=== PATIENT | male | born 1970 | race Caucasian/White ===

== ENCOUNTER 2019-12-24 20:21 | Inpatient (IN) | payer BC, OTHER ==
[~2019-12-24] VITALS: Ht 190.5 cm; Wt 101.6 kg
--- NOTE | 2019-12-24 20:30 | NUR ---
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 PER PT HE HAD A SZ WITH HEAD INJURY EARLIER, SCALP TINA NOTED.
[2019-12-24] MEDS ORDERED: LEVETIRACETAM (500MG) 1,000 MG in IV NS 0.9% 100 ML IV ONE (21:00)
[2019-12-24] MEDS ORDERED: IV NS 0.9% 1,000 ML BAG IV ONE (21:00)
[2019-12-24 21:22] LABS: BASOPHILS # (AUTO) 0.1 /CMM (0.0-0.2); EOSINOPHILS % (AUTO) 0.4 % (0.0-6.0); HEMATOCRIT 35 % (39-51); HEMOGLOBIN 12.1 g/dL (13.5-17.5); LYMPHOCYTES # (AUTO) 1.1 /CMM (0.8-4.8); MEAN CORPUSCULAR HGB CONC 34 g/dl (31.0-36.0); MEAN CORPUSCULAR VOLUME 103 fL (80-96); MONOCYTES # (AUTO) 0.6 /CMM (0.1-1.30); MONOCYTES % (AUTO) 5.7 % (2.0-12.0); NEUTROPHILS # (AUTO) 8.7 /CMM (1.8-8.9); NEUTROPHILS % (AUTO) 82.9 % (43.0-81.0); PLATELET COUNT (AUTO) 221 /CMM (150-450); RED BLOOD CELL COUNT(AUTO) 3.42 MIL/uL (4.5-6.0); WHITE BLOOD COUNT (AUTO) 10.5 K/uL (4.3-11.0)
[2019-12-24] MEDS ORDERED: KETOROLAC TROMETHAMINE INJ 30 MG/ML VIAL ONE (21:26)
[2019-12-24] MEDS ORDERED: KETOROLAC TROMETHAMINE INJ 30 MG/ML VIAL IV ONE (21:30)
--- NOTE | 2019-12-24 21:30 | NUR ---
PT W/ C/O LOWER BACK PAIN . CRISTOBAL CARABALLO MADE AWARE W. A NEW ORDER FOR TORADOL. NOTED AND CARRIED OUT
--- NOTE | 2019-12-24 21:39 | NUR ---
CRISTOBAL NAIDU SPEAKING WITH NEURO DR. TRUJILLO
[2019-12-24 22:24] LABS: CALCIUM, SERUM 9.1 mg/dL (8.5-10.1); CREATININE 1.2 mg/dL (0.6-1.3); POTASSIUM 4.1 mmol/L (3.5-5.1)
--- NOTE | 2019-12-24 22:46 | NUR ---
CALLED NURSING SUP FOR BED
--- NOTE | 2019-12-24 22:51 | NUR ---
DR. BEAL AT BEDSIDE FOR EVALUATION
--- NOTE | 2019-12-24 22:52 | NUR ---
DR BEAL AT [facility] SIDE
[2019-12-24 23:07] LABS: BAND % (MANUAL) 1 % (0.0-5.0); EOSINOPHILS % (MANUAL) 1 % (0-4); LYMPHOCYTES % (MANUAL) 9 % (16-48); MONOCYTES % (MANUAL) 11 % (0-11.0); NEUTROPHILS % (MANUAL) 78 (42-76)
--- NOTE | 2019-12-24 23:09 | NUR ---
A SECOND IV LINE STARTED ON RAC. PT REPORTED HE IS NOT TAKING ANY MEDICATION AT HOME
--- NOTE | 2019-12-24 23:58 | NUR ---
BED ASSIGNMENT ICU 254
[2019-12-25] VITALS (36 sets, daily range): BP systolic 103–135; BP diastolic 65–93
--- NOTE | 2019-12-25 00:27 | NUR ---
REPORT GIVEN TO BLESSING AT ICU
[2019-12-25] MEDS ORDERED: Z GUARD REMEDY 2 OZ OINT TP PRN (00:30)
[2019-12-25] MEDS ORDERED: ACETAMINOPHEN 325 MG TABLET PO PRN (00:30)
[2019-12-25] MEDS ORDERED: HYDROCODONE/APAP 5/325MG TABLET PO PRN (00:30)
[2019-12-25] MEDS ORDERED: MAGNESIUM HYDROXIDE 30 ML UDC PO PRN (00:30)
[2019-12-25] MEDS ORDERED: MAG HYDROX/AL HYDROX/SIMETH 30 ML UDC PO PRN (00:30)
[2019-12-25] MEDS ORDERED: ONDANSETRON HCL/PF 4 MG/2 ML VIAL IVP PRN (00:30)
[2019-12-25] MEDS ORDERED: LORAZEPAM INJ 2 MG/ML VIAL IV PRN (00:30)
--- NOTE | 2019-12-25 01:00 | NUR ---
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 PRIOR TO THE INCIDENT PATIENT HAD A SEIZURE AT WORK,WAS SENT TO [facility] [place] ,WAS NOT GIVEN ANY MEDICATION THERE BUT SUSTAINED A LACERATION OF THE HEAD/OCCIPUT AND HAD 3 STITCHES ,WAS SENT HOME WITH PRESCRIPTION(KEPPRA), WHILE DRIVING HOME THAT'S WHEN HAD ANOTHER SEIZURE. CT SHOWED SAH. PATIENT AWAKE,ALERT,CONVERSES,COHERENT AND APPROPRIATE,DENIES ANY HEADACHE,ONLY C/O BACK PAIN .MOVES ALL EXTREMITIES WELL,NO NEURO DEFICIT.
--- NOTE | 2019-12-25 01:02 | NUR ---
PT WAS TRANSFERRED TO ICU UNDER ACLS
[2019-12-25] MEDS: IV NS 0.9% 1,000 ML IV PRN ×2 (01:06→13:32)
--- NOTE | 2019-12-25 04:00 | NUR ---
REMAINS STABLE,NO NEURO DEFICIT,NO EPISODE OF SEIZURE
--- NOTE | 2019-12-25 05:00 | NUR ---
EPISODE OF BRADYCARDIA IN THE 50'S AND OCCASIONAL PVC'S. ASYMPTOMATIC,DENIES ANY CHEST PAIN,REMAINS AWAKE,ALERT.
--- NOTE | 2019-12-25 07:00 | NUR ---
STABLE ,NO SEIZURE ALL NIGHT .REPORT GIVEN TO SNEHA SOUSA
--- NOTE | 2019-12-25 07:10 | NUR ---
RN NOTES RECEIVED PT ON BED, A/OX4, NO ANY NEUROLOGICAL DEFICIT NOTED, CONTINUE NEURO CHECKS , ON 2L O2 N/C , NO SOB NOTED, ON TELE SR -SB HR , R AC AND L AC IV SITES CLEAN,DRY AND INTACT ,NS AT 75CC/HR RUNNING ,SR UP X3, CALL LIGHT WITHIN EASY REACH, BED LOCKED AND IN LOWEST POSITION, CONTINUE TO MONITOR.
--- NOTE | 2019-12-25 07:30 | NUR ---
RN NOTES RECEIVED ORDER FROM MD FOR DVT PUMP.
[2019-12-25] MEDS: LEVETIRACETAM (250 MG) 250 MG TABLET PO SCH ×2 (08:10→21:30)
[2019-12-25] MEDS: CHLORDIAZEPOXIDE HCL 5 MG CAPSULE PO SCH ×3 (08:10→17:41)
[2019-12-25] MEDS ORDERED: LEVE500T20 PO (08:48)
--- NOTE | 2019-12-25 12:00 | NUR ---
RN NOTES PT STABLE , NO NEUROLOGICAL DEFICITS NOTED, CONTINUE TO MONITOR
--- NOTE | 2019-12-25 13:23 | NUR ---
Pipe Welder met with patient today to complete a psychosocial assessment. Reason for assessment is stroke protocol. Patient is a 49-year-old male. Patient is alert and oriented x4. Patient confirmed date of , address, and emergency contact information. Per patient, lives in [place] in an apartment with his Lynda, eldest son, and pets. 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 Per patient, he travels to [place] and has been sharing a room with other [place] natives who work in the film industry with him. Per patient, he does not know the address, but the major cross streets are [facility] and [place]. Per patient, he drove to [place] early last week as he had to film a few days ago. Per patient, he drinks alcohol every night. Per patient, over the last few months, patient has been drinking more than usual. Per patient, too much patient reports drinking a pint of whiskey a night and several beers. Per patient, he began drinking at 21 years-old but not to the same extent as he is now. Per patient, After this, I need to cut back. Patient refused substance use resources stating As soon as I go back home, my will have a list of them for me to choose from. She is overprotective and that is another reason why I love her. Per patient, he also smokes cigarettes approximately a pack a day. Patient denies mental health illness diagnosis. Patient denies auditory and visual hallucinations. Patient denies suicidal and homicidal ideation. SW conducted PHQ9 assessment on this patient per stroke protocol. Patient scored a 0 on PHQ9 scale and will be provided with stroke empowerment resources. SW to remain available for all needs regarding this patient.
--- NOTE | 2019-12-25 16:00 | NUR ---
RN NOTES PT STABLE, NO NEUROLOGICAL ISSUES NOTED, PT A/Ox4, CONTINUE TO MONITOR.
--- NOTE | 2019-12-25 18:00 | NUR ---
RN NOTES PT CHIQUI ANY DISTRESS , NO SZ ACTIVITIES NOTED ON THIS SHIFT, PT STABLE, WILL ENDORSE TO CONTINUOUS PICKLING LINE PICKLER NURSE FOR CONTINUITY OF CARE .
--- NOTE | 2019-12-25 19:30 | NUR ---
RN NOTES REPORT GIVEN TO PENNY SOUSA FOR CONTINUITY OF CARE.
--- NOTE | 2019-12-25 20:10 | NUR ---
RN NOTES RECEIVED PT DOWNGRADED FROM ICU; A/OX4. PATIENT IN NO S/SX OF ACUTE DISTRESS AT THIS TIME. NO SOB NOTED. PATIENT'S BREATHING IS EVEN AND UNLABORED. PATIENT IS ON 2L OF OXYGEN VIA NC; TOLERATING WELL.PATIENT ON TELE MONITORING READING SINUS RHYTHM HR IS @6Os AT THE TIME OF RECEIVED.PATIENT ON REGULAR DIET. NOTED IV SITE ON L AND R AC # 18;BOTH PATENT, INTACT AND FLUSHING WELL NO S/S OF INFECTION OR INFILTRATION. WITH IV FLUID RUNNING ORDERED. PATIENT AMBULATORY.SAFETY MEASURES HAVE BEEN PROVIDED AND IMPLEMENTED. PATIENT BED ALARM IS ON. HEAD OF BED ELEVATED. BED IS LOCKED, IN LOWEST POSITION AND SIDE RAILS UP. CALL LIGHT WITHIN REACH OF THE PATIENT. ISOLATION PRECAUTIONS IN PLACE. WILL CONTINUE TO MONITOR AND REASSESS FOR ANY CHANGES AND WILL CARRY OUT ANY ONGOING AND ACTIVE MD ORDER.
--- NOTE | 2019-12-25 22:00 | NUR ---
RN NOTES NO CHANGE IN PATIENT CONDITION AT THIS TIME PATIENT VITALS STABLE, NO SIGNS OF ACUTE RESPIRATORY DISTRESS. SLATE CUTTER MADE AWARE. WILL CONTINUE TO MONITOR AND REASSESS FOR ANY CHANGES THROUGHOUT THE SHIFT.
--- NOTE | 2019-12-25 22:30 | NUR ---
RN NOTES PATIENT TRANSFERRED FROM ROOM 104 TO ROOM 102. PARING MACHINE OPERATOR MADE AWARE.
[2019-12-26] VITALS: BP 121/75
--- NOTE | 2019-12-26 02:00 | NUR ---
RN NOTES NO CHANGE IN PATIENT CONDITION AT THIS TIME PATIENT VITALS STABLE, NO SIGNS OF ACUTE RESPIRATORY DISTRESS. SERVICE DEPARTMENT MANAGER MADE AWARE. WILL CONTINUE TO MONITOR AND REASSESS FOR ANY CHANGES THROUGHOUT THE SHIFT.
[2019-12-26 04:00] VITALS: BP 109/78
[2019-12-26 05:07] LABS: BILIRUBIN,URINE NEGATIVE (NEGATIVE); BLOOD, URINE NEGATIVE Ery/uL (NEGATIVE); KETONES,URINE NEGATIVE (NEGATIVE); LEUKOCYTE ESTERASE ,URINE NEGATIVE (NEGATIVE); NITRITE, URINE NEGATIVE (NEGATIVE); PH,URINE 6.5 (5.0-8.0); PROTEIN,URINE NEGATIVE (NEGATIVE); UGLUCOSE NEGATIVE (NEGATIVE); UROBILINOGEN,URINE 0.2 EU/dL (0.2)
[2019-12-26 05:13] LABS: APPEARANCE,URINE CLEAR (CLEAR); COLOR,URINE YELLOW (YELLOW)
[2019-12-26] MEDS: IV NS 0.9% 1,000 ML IV PRN ×2 (05:20→18:46)
--- NOTE | 2019-12-26 07:30 | NUR ---
RN OPENING NOTES RECEIVED PATIENT IN BED, AWAKE, A/OX4, CLEAN, DENIES PAIN OR DISCOMFORT, ON ROOM AIR, TOLERATING WELL, SPO2 IS 99%, NO SOB NOTED, IV LINE NOTED ON R AC, RUNNING NS @75 CC/HR, INTACT AND PATENT, AMBULATORY, URINAL AT BED SITE, BRUISING ON LOWER BACK AND R ELBOW NOTED, HEAD SUTURE NOTED, INTACT, NO S/SX OF BLEEDING. SAFETY MEASURES IN PLACE, CALL LIGHT IN REACH, BED IN LOWEST POSITION, WILL CONTINUE TO MONITOR
[2019-12-26 07:58] LABS: BASOPHILS # (AUTO) 0.1 /CMM (0.0-0.2); BASOPHILS % (AUTO) 1.1 % (0.0-2.0); EOSINOPHILS % (AUTO) 2.2 % (0.0-6.0); HEMATOCRIT 35 % (39-51); HEMOGLOBIN 11.6 g/dL (13.5-17.5); LYMPHOCYTES # (AUTO) 1.7 /CMM (0.8-4.8); LYMPHOCYTES % (AUTO) 23.1 % (20.0-44.0); MEAN CORPUSCULAR HGB CONC 33 g/dl (31.0-36.0); MEAN CORPUSCULAR VOLUME 107 fL (80-96); MONOCYTES # (AUTO) 0.6 /CMM (0.1-1.30); MONOCYTES % (AUTO) 7.6 % (2.0-12.0); NEUTROPHILS # (AUTO) 4.8 /CMM (1.8-8.9); PLATELET COUNT (AUTO) 194 /CMM (150-450); WHITE BLOOD COUNT (AUTO) 7.3 K/uL (4.3-11.0)
[2019-12-26 08:00] VITALS: BP 118/74
[2019-12-26 08:17] LABS: CALCIUM, SERUM 8.7 mg/dL (8.5-10.1); CREATININE 0.9 mg/dL (0.6-1.3); MAGNESIUM 2.5 mg/dL (1.8-2.4); PHOSPHORUS 3.3 mg/dL (2.5-4.9); POTASSIUM 3.6 mmol/L (3.5-5.1)
[2019-12-26] MEDS: CHLORDIAZEPOXIDE HCL 5 MG CAPSULE PO SCH ×3 (09:05→17:12)
[2019-12-26] MEDS: LEVETIRACETAM (250 MG) 250 MG TABLET PO SCH ×2 (09:05→20:23)
--- NOTE | 2019-12-26 09:10 | NUR ---
reports pain in the back area 09/24, will administer PRN pain medication
[2019-12-26 12:00] VITALS: BP 130/88
--- NOTE | 2019-12-26 13:00 | NUR ---
PER DR RILEY NEEDS NEUROLOGIST CONSULT
[2019-12-26 16:00] VITALS: BP 150/64
--- NOTE | 2019-12-26 19:15 | NUR ---
RN NOTES RECEIVED PATIENT A/OX4. PATIENT IN NO S/SX OF ACUTE DISTRESS AT THIS TIME. NO SOB NOTED. PATIENT'S BREATHING IS EVEN AND UNLABORED. PATIENT IS ON ROOM AIR TOLERATING WELL WITH 02 SAT @96%.PATIENT ON TELE MONITORING READING SINUS RHYTHM HR IS @61 AT TIME OF RECEIVED.PATIENT ON REGULAR DIET. NOTED IV SITE ON L AND R AC # 18;BOTH PATENT, INTACT AND FLUSHING WELL NO S/S OF INFECTION OR INFILTRATION. WITH IV FLUID RUNNING ORDERED. PATIENT AMBULATORY.SAFETY MEASURES HAVE BEEN PROVIDED AND IMPLEMENTED. PATIENT BED ALARM IS ON. HEAD OF BED ELEVATED. BED IS LOCKED, IN LOWEST POSITION AND SIDE RAILS UP. CALL LIGHT WITHIN REACH OF THE PATIENT. ISOLATION PRECAUTIONS IN PLACE. WILL CONTINUE TO MONITOR AND REASSESS FOR ANY CHANGES AND WILL CARRY OUT ANY ONGOING AND ACTIVE MD ORDER.
--- NOTE | 2019-12-26 19:38 | NUR ---
RN CLOSING NOTES PATIENT REMAINS IN BED, MEDICATION GIVEN, TELE MONITOR SR, COMFORT NEEDS ATTEND, TOLERATING IV HYDRATION WELL, IV LINE INTACT AND PATENT, SAFETY MEASURES IN PLACE, CALL LIGHT IN REACH, WILL ENDORSE TO PM RN FOR COREY
[2019-12-26 20:00] VITALS: BP_SYST 130; BP_SYST 135; BP_DIAS 70; BP_DIAS 87
--- NOTE | 2019-12-26 22:00 | NUR ---
RN NOTES NO NOTED CHANGES TO PATIENT CONDITION/STATUS. ADVERTISING SALES MANAGER MADE AWARE. WILL CONTINUE TO MONITOR AND REASSESS FOR ANY CHANGES THROUGHOUT THE SHIFT.
[2019-12-27] VITALS: BP 131/88
--- NOTE | 2019-12-27 01:00 | NUR ---
RN NOTES NO NOTED CHANGES TO PATIENT CONDITION/STATUS. BALL MACHINE OPERATOR MADE AWARE. WILL CONTINUE TO MONITOR AND REASSESS FOR ANY CHANGES THROUGHOUT THE SHIFT.
[2019-12-27 04:00] VITALS: BP 132/79
[2019-12-27 06:48] LABS: CALCIUM, SERUM 8.5 mg/dL (8.5-10.1); CREATININE 0.9 mg/dL (0.6-1.3); POTASSIUM 3.5 mmol/L (3.5-5.1)
[2019-12-27 06:55] LABS: BASOPHILS # (AUTO) 0.1 /CMM (0.0-0.2); EOSINOPHILS % (AUTO) 2.8 % (0.0-6.0); HEMATOCRIT 38 % (39-51); HEMOGLOBIN 12.4 g/dL (13.5-17.5); LYMPHOCYTES # (AUTO) 1.8 /CMM (0.8-4.8); LYMPHOCYTES % (AUTO) 26.9 % (20.0-44.0); MEAN CORPUSCULAR HGB CONC 33 g/dl (31.0-36.0); MEAN CORPUSCULAR VOLUME 106 fL (80-96); MONOCYTES # (AUTO) 0.7 /CMM (0.1-1.30); MONOCYTES % (AUTO) 10.1 % (2.0-12.0); NEUTROPHILS % (AUTO) 59.2 % (43.0-81.0); PLATELET COUNT (AUTO) 197 /CMM (150-450); RED BLOOD CELL COUNT(AUTO) 3.54 MIL/uL (4.5-6.0); WHITE BLOOD COUNT (AUTO) 6.7 K/uL (4.3-11.0)
--- NOTE | 2019-12-27 06:56 | NUR ---
RN CLOSING NOTE: PATIENT REMAINS IN ROOM. NO SIGNS OF RESPIRATORY DISTRESS. SAFETY MEASURES IMPLEMENTED, BED IN LOWEST POSITION, LOCKED, SIDE RAILS UP, CALL LIGHT WITHIN REACH. ALL NEEDS AND ORDERS ADDRESSED DURING THE SHIFT. ALL DUE MEDS GIVEN ORDERED & SCHEDULED ; PATIENT TOLERATED WELL.PATIENT KEPT CLEAN AND COMFORTABLE WITHIN THE SHIFT. ENDORSED TO INCOMING SHIFT RN FOR CONTINUITY OF CARE.
--- NOTE | 2019-12-27 07:46 | NUR ---
telephone maintainer note received patent in bed, alert oriented x4 ,on tele monitor sr hr 68 , rt and lt ac hl intact and flushed well , bed in lowest and locked position ,padded side rails in place for seizure precaution, call light within reach, plan of care discussed with patient will cont to monitor
[2019-12-27 08:00] VITALS: BP 146/40
[2019-12-27] MEDS: CHLORDIAZEPOXIDE HCL 5 MG CAPSULE PO SCH (08:05)
[2019-12-27] MEDS: LEVETIRACETAM (250 MG) 250 MG TABLET PO SCH (08:05)
[2019-12-27] MEDS: IV NS 0.9% 1,000 ML IV PRN (08:06)
--- NOTE | 2019-12-27 10:00 | NUR ---
BOOSTER STATION OPERATOR NOTE SEEN BY DR REDMOND WITH ORDER TO D\C HOME
--- NOTE | 2019-12-27 10:46 | NUR ---
UMBRELLA FINISHER NOTE DISCHARGE INSTRUCTION GIVEN, STROKE AND SUBARACHNOID HEMORRHAGE EDUCATION GIVEN , UNDERSTOOD, HL REMOVED ,NO BLEEDING NOTED , BELONGING SIGNED BY PATIENT,INSTRUCTED TO F\U WITH PRIMARY CARE DOCTOR AND NEUROLOGIST PER HIS INSURANCE, TELE REMOVED,EXPLAINED ABOUT HOME MEDS ACTION AND POSSIBLE SIDE EFFECTS , TAKEN TO LOBBY ON W\C WITH ANGIE ,STATED THAT WILL CALL [employer] TO GET HIM HOME, LIVES IN [place] Addendum: 12/27/19 at 1057 by EMMANUEL GRIMES RN TAKEN HOME WITH STABLE CONDITION
== END 2019-12-27 10:58 | disposition home or self-care (01) | DRG 86 ==
LOC: ER 20:25 → ICU 12-25 00:06 → TELE1 12-25 20:07
PROVIDERS: ADMIT Internal Medicine; ATTEND Family Medicine
DX: S06.6X0A Traumatic subarachnoid hemorrhage without loss of consciousness, initial encounter (principal); E87.2 Acidosis; G40.909 Epilepsy, unspecified, not intractable, without status epilepticus; J45.909 Unspecified asthma, uncomplicated; V47.5XXA Car driver injured in collision with fixed or stationary object in traffic accident, initial encounter; Y92.89 Other specified places as the place of occurrence of the external cause; F10.10 Alcohol abuse, uncomplicated; D53.9 Nutritional anemia, unspecified; S01.91XA Laceration without foreign body of unspecified part of head, initial encounter; R40.2362 Coma scale, best motor response, obeys commands, at arrival to emergency department; R40.2142 Coma scale, eyes open, spontaneous, at arrival to emergency department; R40.2252 Coma scale, best verbal response, oriented, at arrival to emergency department
CPT/HCPCS: 36415; 70450-TC; 71045-TC; 72125-TC; 80048-TC; 80061-TC; 81000-TC; 82962-TC; 83735-TC; 84100-TC; 85025-TC; 87081-TC; 92526; 92611-TC; 97110-TC; 97116-TC; 97530-TC; C9803-CS; G0378; G0480; J1885; J1953; J7030; L0172

== ENCOUNTER 2020-01-15 17:00 | Emergency (ER) | payer OTHER ==
[~2020-01-15] VITALS: Ht 190.5 cm; Wt 109.3 kg
[~2020-01-15 17:00] MED LIST: LEVE500T20 PO
--- NOTE | 2020-01-15 17:00 | NUR ---
bibra 102 work for a witnessed seizure, r elbow abrasion noted. 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 CRISTOBAL Carter at bedside for eval
[2020-01-15] MEDS: IV NS 0.9% 1,000 ML BAG IV ONE (17:25)
[2020-01-15 17:26] LABS: BASOPHILS # (AUTO) 0.1 /CMM (0.0-0.2); BASOPHILS % (AUTO) 1.3 % (0.0-2.0); EOSINOPHILS % (AUTO) 2.3 % (0.0-6.0); HEMATOCRIT 36 % (39-51); HEMOGLOBIN 11.7 g/dL (13.5-17.5); LYMPHOCYTES # (AUTO) 2.1 /CMM (0.8-4.8); MEAN CORPUSCULAR HGB CONC 33 g/dl (31.0-36.0); MEAN CORPUSCULAR VOLUME 108 fL (80-96); MONOCYTES # (AUTO) 0.6 /CMM (0.1-1.30); MONOCYTES % (AUTO) 10.2 % (2.0-12.0); NEUTROPHILS # (AUTO) 2.9 /CMM (1.8-8.9); NEUTROPHILS % (AUTO) 50.2 % (43.0-81.0); PLATELET COUNT (AUTO) 200 /CMM (150-450); RED BLOOD CELL COUNT(AUTO) 3.33 MIL/uL (4.5-6.0); WHITE BLOOD COUNT (AUTO) 5.8 K/uL (4.3-11.0)
[2020-01-15 17:33] LABS: CALCIUM, SERUM 9.5 mg/dL (8.5-10.1); CREATININE 1.4 mg/dL (0.6-1.3)
[2020-01-15] MEDS: LEVETIRACETAM (500MG) 500 MG in IV NS 0.9% 100 ML IV ONE (17:44)
[2020-01-15 18:30] LABS: EOSINOPHILS % (MANUAL) 1 % (0-4); LYMPHOCYTES % (MANUAL) 29 % (16-48); MONOCYTES % (MANUAL) 10 % (0-11.0); NEUTROPHILS % (MANUAL) 60 (42-76)
--- NOTE | 2020-01-15 19:06 | NUR ---
Patient discharged to home in stable condition. Written and verbal after care instructions given. Patient verbalizes understanding of instruction. IV removed. Catheter intact and site benign. Pressure and 4x4 applied to site. No bleeding noted.
[2020-01-15 19:07] VITALS: BP 125/76
== END 2020-01-15 19:07 | disposition home or self-care (01) ==
LOC: ER 17:01
DX: S50.311A Abrasion of right elbow, initial encounter (principal); G40.909 Epilepsy, unspecified, not intractable, without status epilepticus; D64.9 Anemia, unspecified; J45.909 Unspecified asthma, uncomplicated; Z91.14 Patient's other noncompliance with medication regimen; X58.XXXA Exposure to other specified factors, initial encounter; Y93.89 Activity, other specified; Y92.89 Other specified places as the place of occurrence of the external cause; Y99.8 Other external cause status
CPT/HCPCS: 36415; 80048; 83735; 85007; 85025; 96365; 99284; J1953 ×2; J7030 ×2

== ENCOUNTER 2023-01-27 23:13 | Emergency (ER) | payer BC, OTHER ==
[~2023-01-27] VITALS: Ht 193 cm; Wt 94.3 kg
[2023-01-28] MEDS ORDERED: LIDOCAINE 1%-EPI 1:200,000 SDV 10 ML VIAL IJ ONE
[2023-01-28] MEDS ORDERED: LIDOCAINE 1%-EPI 1:100,000 20 ML VIAL ONE (00:05)
[2023-01-28 00:30] LABS: BASOPHILS # (AUTO) 0.1 K/uL (0.0-0.2); BASOPHILS % (AUTO) 1.1 % (0.0-2.0); EOSINOPHILS # (AUTO) 0.2 K/uL (0.0-0.7); HEMATOCRIT 39 % (39-51); HEMOGLOBIN 12.8 g/dL (13.5-17.5); LYMPHOCYTES # (AUTO) 3.3 K/uL (0.8-4.8); LYMPHOCYTES % (AUTO) 50.8 % (20.0-44.0); MEAN CORPUSCULAR HEMOGLOBIN 35 PG (26.0-33.0); MEAN CORPUSCULAR HGB CONC 33 g/dl (31.0-36.0); MEAN CORPUSCULAR VOLUME 108 fL (80-96); MONOCYTES # (AUTO) 0.6 K/uL (0.1-1.30); MONOCYTES % (AUTO) 8.9 % (2.0-12.0); NEUTROPHILS # (AUTO) 2.3 K/uL (1.8-8.9); NEUTROPHILS % (AUTO) 36.2 % (43.0-81.0); PLATELET COUNT (AUTO) 320 K/uL (150-450); RED BLOOD CELL COUNT(AUTO) 3.64 MIL/uL (4.5-6.0); RED CELL DISTRIBUTION WIDTH 14.9 % (11.5-15.0); WHITE BLOOD COUNT (AUTO) 6.5 K/uL (4.3-11.0)
[2023-01-28 00:38] LABS: CALCIUM, SERUM 8.7 mg/dL (8.5-10.1); CREATININE 0.8 mg/dL (0.6-1.3); POTASSIUM 3.8 mmol/L (3.5-5.1)
[2023-01-28 02:09] LABS: EOSINOPHILS % (MANUAL) 5 % (0-4); LYMPHOCYTES % (MANUAL) 45 % (16-48); MONOCYTES % (MANUAL) 8 % (0-11.0); NEUTROPHILS % (MANUAL) 42 (42-76); PLATELET ESTIMATE ADEQUATE
[2023-01-28 02:17] VITALS: BP 139/77; TEMP 98.1; O2SAT 98
== END 2023-01-28 02:17 | disposition home or self-care (01) ==
LOC: ER 23:16
DX: S01.112A Laceration without foreign body of left eyelid and periocular area, initial encounter (principal); F10.129 Alcohol abuse with intoxication, unspecified; Y90.8 Blood alcohol level of 240 mg/100 ml or more; J45.909 Unspecified asthma, uncomplicated; W18.30XA Fall on same level, unspecified, initial encounter; Y93.89 Activity, other specified; Y92.89 Other specified places as the place of occurrence of the external cause; Y99.8 Other external cause status
CPT/HCPCS: 12013; 99284; 72125; 70450; 36415; 85025; 80048; 85007; 80320; J3490 ×2; G0480